=== PATIENT | female | born 1985 | race Hispanic/Latino ===

== ENCOUNTER 2017-08-07 10:10 | Outpatient (CLI) | payer OTHER ==
--- NOTE | 2017-08-07 12:55 | MRI ---
MRI BRAIN NONCONTRAST: Indication: Right sided headache. History of seizures. Comparison: None. FINDINGS: Ventricular size is appropriate in size. There is no acute territory infarction, intracranial mass e ffect, or midline shift. No intracranial hemorrhagic susceptibility. No significant abnormality of t he brain parenchyma. No evidence of asymmetric hippocampal atrophy. The unenhanced sellar contents a re unremarkable. The imaged skull based flow voids are grossly patent. IMPRESSION: There is no acute intracranial abnormality. If there is history of new onset seizure, this would war rant follow up imaging with contrast. POS: [facility]CRUZ
== END 2017-08-07 10:11 | disposition home or self-care (01) ==
LOC: MRI 10:10
PROVIDERS: ATTEND Family Medicine
DX: G40.909 Epilepsy, unspecified, not intractable, without status epilepticus (principal)
CPT/HCPCS: 70551

== ENCOUNTER 2019-03-12 08:01 | Outpatient (CLI) | payer OTHER ==
--- NOTE | 2019-03-12 08:27 | ULT ---
EXAM: US Gallbladder RUQ CLINICAL HISTORY: Nausea. Vomiting. Right upper quadrant pain.. COMPARISON: None. FINDINGS: Pancreas: Suboptimal evaluation. Visualized pancreatic parenchyma has a normal echotexture. Liver:Normal parenchymal echotexture. No hepatic masses or intrahepatic biliary dilatation. Contour o f the hepatic margins maintained. Right hepatic lobe measures centimeters. Gallbladder: No sonographic evidence of cholelithiasis, gallbladder wall thickening or pericholecysti c fluid. Welch's sign:Negative Bile ducts: Common bile duct diameter is 0.25 cm Portal vein: Patent Visualized IVC and aorta have a normal caliber. Right kidney: No hydronephrosis Right kidney measuring 4.0 x 10.3 x 5.7 cm in length. IMPRESSION: Unremarkable exam.
== END 2019-03-12 08:02 | disposition home or self-care (01) ==
LOC: BICULT 08:01
PROVIDERS: ATTEND Family Medicine
DX: R10.11 Right upper quadrant pain (principal); R11.2 Nausea with vomiting, unspecified
CPT/HCPCS: 76705